=== PATIENT | female | born 1930 | race Caucasian/White ===

== ENCOUNTER 2016-10-13 15:23 | Emergency (ER) | payer BC, MEDICAID ==
[~2016-10-13] VITALS: Ht 170.2 cm; Wt 69.4 kg
[~2016-10-13 15:23] MED LIST: CARV3.122 PO; DIGO125T PO; DILT30TA2 PO; FAMO20TA80 PO; FURO40TA5 PO; GLIP5TAB13 PO; LISI40TA4 PO; METF500T4 PO; SIMV20TA6 PO
--- NOTE | 2016-10-13 15:30 | NUR ---
PT TO ER BED 08. BIB RA 88,COUGH AND CONGESTION X 4 DAYS. CHANGED TO GOWN. SIDE RAILS UP. HOB ELEVATED. CONNECTED TO MONITOR. SEEN AND EVALUATED BY ED PROVIDER.
[2016-10-13 16:00] LABS: HEMATOCRIT 36 % (33-45); HEMOGLOBIN 12.1 g/dL (11.5-14.8); LYMPHOCYTES # (AUTO) 1.5 /CMM (0.8-4.8); LYMPHOCYTES % (AUTO) 33.8 % (20.0-44.0); MEAN CORPUSCULAR HEMOGLOBIN 29 PG (26.0-33.0); MEAN CORPUSCULAR HGB CONC 34 g/dl (31.0-36.0); MEAN CORPUSCULAR VOLUME 85 fL (82-100); MONOCYTES # (AUTO) 0.6 /CMM (0.1-1.30); MONOCYTES % (AUTO) 13.1 % (2.0-12.0); NEUTROPHILS # (AUTO) 2.4 /CMM (1.8-8.9); NEUTROPHILS % (AUTO) 51.1 % (43.0-81.0); PLATELET COUNT (AUTO) 199 /CMM (150-450); RDW COEFFICIENT OF VARIATION 12.6 (11.5-15.0); RED BLOOD CELL COUNT(AUTO) 4.23 MIL/uL (4.0-5.2); WHITE BLOOD COUNT (AUTO) 4.5 K/uL (4.3-11.0)
[2016-10-13] MEDS ORDERED: ACETAMINOPHEN ES 500 MG TABLET PO ONE (16:00)
[2016-10-13] MEDS ORDERED: IV NS 0.9% 500 ML BAG IV ONE (16:00)
[2016-10-13] MEDS ORDERED: IV NS 0.9% 500 ML IV ONE (16:07)
[2016-10-13] MEDS ORDERED: IV SET PRIMARY PUMP SET 1 EA INFUS.SET MC ONE (16:07)
[2016-10-13 16:12] LABS: CALCIUM, SERUM 9.5 mg/dL (8.5-10.1); CARBON DIOXIDE 27 mmol/L (21-32); CHLORIDE 98 mmol/L (98-107); CREATININE 1.1 mg/dL (0.6-1.3); GLUCOSE 134 mg/dL (74-106); POTASSIUM 3.8 mmol/L (3.5-5.1); SODIUM SERUM 132 mmol/L (136-145); UREA NITROGEN, BLOOD 17 mg/dL (7-18)
[2016-10-13 16:20] LABS: TROPONIN I < 0.017 ng/mL (0.00-0.056)
[2016-10-13] MEDS ORDERED: ACETAMINOPHEN ES 500 MG TABLET ONE (16:22)
[2016-10-13 16:23] LABS: ALANINE AMINOTRANSFERASE 12 U/L (12-78); ALBUMIN 3.3 g/dL (3.4-5.0); ALKALINE PHOSPHATASE 88 U/L (46-116); ASPARTATE AMINOTRANSFERASE 18 U/L (15-37); BILIRUBIN,DIRECT 0.1 mg/dL (0.0-0.2); BILIRUBIN,TOTAL 0.3 mg/dL (0.2-1.0); TOTAL PROTEIN, SERUM 6.6 g/dL (6.4-8.2)
[2016-10-13 16:32] LABS: LACTIC ACID 1.9 mmol/L (0.4-2.0)
--- NOTE | 2016-10-13 16:40 | NUR ---
Patient is resting comfortably in bed with eyes closed. Easily aroused. VSS
--- NOTE | 2016-10-13 16:52 | NUR ---
pt is unable to provide with urine sample at this time. randa try again later.
--- NOTE | 2016-10-13 17:04 | NUR ---
patient refuses in/out montoya catheter.
[2016-10-13 17:30] LABS: INR 1.03 (0.87-1.13)
--- NOTE | 2016-10-13 17:51 | NUR ---
SPOKE WITH MARK ANTHONY LOCKHART,SON, AT [phone], HE WANTS HER SENT BY [facility] TO [address] [place] [address], HE WANTS TO BE CALLED WHEN SHE'S LEAVING.
--- NOTE | 2016-10-13 17:59 | NUR ---
IV removed. Catheter intact and site benign. Pressure and 4x4 applied to site. No bleeding noted.Patient discharged to home in stable condition. Written and verbal after care instructions given. Patient verbalizes understanding of instruction. Edgar quintanilla. NAD. VERNON ESCOBEDO.
--- NOTE | 2016-10-13 18:06 | NUR ---
CALLED [facility] FOR PATIENT ETA 15 MIN
[2016-10-13 18:09] VITALS: BP 139/80
== END 2016-10-13 18:09 | disposition home or self-care (01) ==
LOC: ER 15:25
DX: S09.90XA Unspecified injury of head, initial encounter (principal); R51 Headache; F41.9 Anxiety disorder, unspecified; I10 Essential (primary) hypertension; E11.9 Type 2 diabetes mellitus without complications; E78.5 Hyperlipidemia, unspecified; I50.9 Heart failure, unspecified; K21.9 Gastro-esophageal reflux disease without esophagitis; M19.90 Unspecified osteoarthritis, unspecified site; W01.198A Fall on same level from slipping, tripping and stumbling with subsequent striking against other object, initial encounter; Y93.89 Activity, other specified; Y92.89 Other specified places as the place of occurrence of the external cause; Y99.8 Other external cause status
CPT/HCPCS: 36415; 70450; 71010; 80048; 80076; 83605; 84484; 85025; 85730; 93005; 96360; 99285; A4606; J7040; Z7610